=== PATIENT | female | born 1985 | race Asian ===

== ENCOUNTER 2017-08-20 12:05 | Observation (INO) | payer BC ==
[~2017-08-20 12:05] MED LIST: HYDROmorphone 2 MG/ML VIAL IV; LIDOCAINE 1% PF 2 ML VIAL. ID; LIDOCAINE 2% PF Vial for OR 5 ML VIAL.; MORPHINE SULFATE 2 MG/ML DISP.SYRIN. IV; ONDANSETRON PF 4 MG/2 ML VIAL. IV; PROCHLORPERAZINE 10 MG/2 ML VIAL. IV; PROPOFOL 20 ML IV; ROCURONIUM 50 MG/5 ML VIAL.; fentaNYL PF VIAL 100 MCG/2 ML VIAL; fentaNYL PF VIAL 100 MCG/2 ML VIAL IV
[2017-08-20 12:39] LABS: NEG OBC UR NEG; POS OBC UR POS; U PREG PATIENT NEGATIVE (NEG)
[2017-08-20] MEDS: IV RINGERS,LACTATED 1000ML 1,000 ML IV ×2 (12:41)
[2017-08-20] MEDS ORDERED: GLYCOPYRROLATE 1 MG/5 ML VIAL. ×2 (13:50)
[2017-08-20] MEDS ORDERED: DESFLURANE 31 TO 60 MINUTES IH ×2 (14:04)
[2017-08-20] MEDS ORDERED: DEXAMETHASONE SOD PHOS 20 MG/5 ML VIAL. ×2 (14:04)
[2017-08-20] MEDS ORDERED: PHENYLEPHRINE in 0.9% NACL PF 1 MG/10 ML SYRINGE. IV (14:15)
[2017-08-20] MEDS ORDERED: ePHEDrine PF IN SALINE 50 MG/5 ML DISP.SYRIN IV (14:16)
[2017-08-20] MEDS: BUPIVAC MPF-EPI 0.5%-1:200000 30 ML VIAL. INJ ×2 (14:16)
[2017-08-20] MEDS ORDERED: fentaNYL PF VIAL 100 MCG/2 ML VIAL ×2 (15:17)
[2017-08-20] MEDS: fentaNYL PF VIAL 100 MCG/2 ML VIAL IV ×4 (15:41→15:51)
[2017-08-20] MEDS ORDERED: oxyCODONE/APAP 5/325 1 TAB TABLET ×2 (15:56)
[2017-08-20] MEDS: oxyCODONE/APAP 5/325 1 TAB TABLET PO ×2 (16:04)
[2017-08-20] MEDS ORDERED: DEXTROSE 50% 25 GM / 50ML DISP.SYRIN. IV ×2 (17:15)
[2017-08-20] MEDS ORDERED: oxyCODONE/APAP 5/325 1 TAB TABLET PO ×2 (17:15)
[2017-08-20] MEDS ORDERED: MORPHINE SULFATE 2 MG/ML DISP.SYRIN. IV ×2 (17:15)
[2017-08-20] MEDS ORDERED: 0.9 % SODIUM CHLORIDE 10 ML DISP.SYRIN. IV ×2 (17:15)
[2017-08-20] MEDS ORDERED: KETOROLAC 30 MG/ML INJ. IV ×2 (17:15)
[2017-08-20] MEDS ORDERED: ONDANSETRON PF 4 MG/2 ML VIAL. IV ×2 (17:15)
[2017-08-20] MEDS ORDERED: diphenhydrAMINE HCL 25 MG CAPSULE PO ×2 (17:15)
[2017-08-20] MEDS ORDERED: METOCLOPRAMIDE HCL 10 MG/2 ML VIAL. IV ×2 (17:15)
[2017-08-20] MEDS ORDERED: MAG HYDROX/ALUMINUM HYD/SIMETH 30 ML ORAL.SUSP PO ×2 (17:15)
[2017-08-20] MEDS ORDERED: INFLUENZA VAX SCREEN BY RX. MC ×2 (20:30)
[2017-08-21] MEDS: oxyCODONE/APAP 5/325 1 TAB TABLET PO ×2 (09:20)
[2017-08-21] MEDS: FLU VACC QS2017-18 (36MOS+)/PF 0.5 ML SYRINGE. VAX IM ×2 (09:31)
== END 2017-08-21 11:30 | disposition home or self-care (01) ==
LOC: SURG 12:05 → 3 NORTH 17:06
DX: N83.201 Unspecified ovarian cyst, right side (principal); N83.202 Unspecified ovarian cyst, left side; Z97.5 Presence of (intrauterine) contraceptive device; Z23 Encounter for immunization
CPT/HCPCS: 49322; 81025; 88300; 88305; 90471; 90686; C1769; G0378; G0379; J0690; J1100; J2370; J2704; J3010; J3490; J7030

== ENCOUNTER → 2020-10-07 | Outpatient (CLI) | payer BC ==
[2017-08-21 10:08] VITALS: BP 96/62
[~2020-10-07] MED LIST changes: -HYDROmorphone 2 MG/ML VIAL IV; -LIDOCAINE 1% PF 2 ML VIAL. ID; -LIDOCAINE 2% PF Vial for OR 5 ML VIAL.; -MORPHINE SULFATE 2 MG/ML DISP.SYRIN. IV; -ONDANSETRON PF 4 MG/2 ML VIAL. IV; +OXYC1TAB15 PO; -PROCHLORPERAZINE 10 MG/2 ML VIAL. IV; -PROPOFOL 20 ML IV; -ROCURONIUM 50 MG/5 ML VIAL.; -fentaNYL PF VIAL 100 MCG/2 ML VIAL; -fentaNYL PF VIAL 100 MCG/2 ML VIAL IV
[2020-10-07 12:50] LABS: BASO % 1 % (0-3); EOS # 0.2 x10^3/uL (0.0-0.7); EOS % 4 % (0-3); HEMATOCRIT 33.3 % (36.0-47.0); HEMOGLOBIN 10.9 g/dL (12.0-15.5); LYMPH # 1.4 x10^3/uL (1.0-4.8); LYMPH % 31 % (24-48); MEAN CORPUSCULAR HEMOGLOBIN 28 pg (25-35); MEAN CORPUSCULAR HGB CONC 33 g/dL (31-37); MEAN CORPUSCULAR VOLUME 84 fL (79-100); MONO # 0.3 x10^3/uL (0.0-1.1); MONO % 7 % (0-9); NEUT # 2.7 x10^3/uL (1.8-7.7); NEUT % 58 % (31-73); PLATELET COUNT 252 x10^3/uL (140-400); RED BLOOD COUNT 3.95 x10^6/uL (3.50-5.40); RED CELL DISTRIBUTION WIDTH 14.5 % (11.5-14.5); WHITE BLOOD COUNT 4.6 x10^3/uL (4.0-11.0)
[2020-10-07 12:59] LABS: BILIRUBIN,URINE NEGATIVE (NEG); CLARITY,URINE CLEAR; COLOR,URINE YELLOW; NITRITE,URINE NEGATIVE (NEG); PH,URINE 7.5 (<5.0-8.0); PROTEIN,URINE NEGATIVE (NEG-TRACE)
[2020-10-07 13:03] LABS: ALBUMIN 3.5 g/dL (3.4-5.0); ALBUMIN/GLOBULIN RATIO 0.8 (1.0-1.7); CALCIUM 8.6 mg/dL (8.5-10.1); CREATININE 0.7 mg/dL (0.6-1.0); GFR 95.2; POTASSIUM 3.9 mmol/L (3.5-5.1); TOTAL BILIRUBIN 0.4 mg/dL (0.2-1.0); TOTAL PROTEIN 7.8 g/dL (6.4-8.2)
[2020-10-07 13:33] LABS: RBC,URINE TNTC /HPF (0-2)
[2020-10-07 13:35] LABS: WBC,URINE 0 /HPF (0-4)
[2020-10-07 13:36] LABS: BACTERIA,URINE 0 /HPF (0-FEW)
--- NOTE | 2020-10-10 08:06 | NUR ---
Pretesting lab results faxed to Dr. Amezcua.
== END ==
LOC: SURGPAT 11:54
PROVIDERS: ATTEND Obstetrics & Gynecology
DX: Z01.812 Encounter for preprocedural laboratory examination (principal); Z20.822 Contact with and (suspected) exposure to COVID-19
CPT/HCPCS: 80053; 81001; 85025; 87086; U0003; U0005